=== PATIENT | male | born 1975 | race African-American/Black ===

== ENCOUNTER 2022-06-21 07:09 | Emergency (ER) | payer MEDICAID ==
[~2022-06-21] VITALS: Ht 182.9 cm; Wt 86.2 kg
--- NOTE | 2022-06-21 07:09 | NUR ---
PT BROUGHT TO BED 7 VIA [facility] ROMO
[2022-06-21 07:13] VITALS: BP 154/114
--- NOTE | 2022-06-21 07:20 | NUR ---
MD RADER AT BEDSIDE FOR EVALUATION
[2022-06-21] MEDS ORDERED: IBUPROFEN 600 MG TAB PO ONE (07:25)
--- NOTE | 2022-06-21 07:28 | NUR ---
XRAT AT BEDSIDE
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
[2022-06-21] MEDS ORDERED: TRAM50TA1 PO (08:00)
[2022-06-21] MEDS ORDERED: NAPR-1704 PO (08:00)
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
--- NOTE | 2022-06-21 08:17 | NUR ---
Patient discharged with v/s stable. Written and verbal after care instructions FOR SHOULDER PAIN given and explained. Patient alert, oriented and verbalized understanding of instructions. Ambulatory with steady gait. All questions addressed prior to discharge. ID band removed. Patient advised to follow up with PMD. Rx of ULTRAM AND NAPROXEN given. Opportunity to ask questions provided and answered. Addendum: 06/21/22 at 0819 by PHSEP ABDIELER PROVIDED TO [id number] [facility] [id number]
== END 2022-06-21 08:17 | disposition home or self-care (01) ==
LOC: MED 07:09
DX: S40.012A Contusion of left shoulder, initial encounter (principal); Z79.899 Other long term (current) drug therapy; X58.XXXA Exposure to other specified factors, initial encounter; Y93.72 Activity, wrestling; Y92.89 Other specified places as the place of occurrence of the external cause; Y99.8 Other external cause status
CPT/HCPCS: 73030; 99283; Q0092